=== PATIENT | female | born 1995 | race Two or more races ===

== ENCOUNTER → 2020-06-29 | Emergency (ER) | payer OTHER ==
[~2020-06-29] VITALS: Ht 167.6 cm; Wt 65.8 kg
[~2020-06-29] MED LIST: ONDANSETRON ODT4 MG BC
[2020-06-29 17:12] LABS: APPEARANCE,URINE CLOUDY; BILIRUBIN, URINE NEGATIVE (NEGATIVE); COLOR,URINE PALE YELLOW; GLUCOSE, URINE (UA) NEGATIVE (NEGATIVE); KETONES,URINE NEGATIVE (NEGATIVE); LEUKOCYTE ESTERASE ,URINE 1+ (NEGATIVE); NITRITE,URINE NEGATIVE (NEGATIVE); PH,URINE 7 (4.5-8.0); PROTEIN,URINE 2+ (NEGATIVE); UROBILINOGEN,URINE NORMAL MG/DL (0.0-1.0)
[2020-06-29 17:14] VITALS: BP 146/87
--- NOTE | 2020-06-29 17:16 | NUR ---
ED Nurse Note:urine sent to labs and EKG done
--- NOTE | 2020-06-29 17:56 | Emergency Room Report ---
History of Present Illness General Chief Complaint: General Complaint Source: Patient Present Illness HPI 25-year-old female with hx of Depression and anxiety, presents to the emergency department complaining of dizziness, nausea, vomiting and diarrhea as well as increased crying x2 days. Patient reports that she recently was on antibiotics due to having cellulitis of the leg and during that time she was experiencing medication side effects between antibiotic and her Zoloft and trazodone. Patient psychiatrist told her to abruptly discontinue Zoloft for which she did. Patient states she recently began tapering onto zoloft again and is currently taking 50mg. . Patient reports she smokes marijuana daily. She denies or suspicion of . She denies dizziness or headache. She denies confusion She denies abdominal pain or tenderness. She denies dysuria, materia, urinary frequency or urgency. She denies blood in the vomitus or stool. She denies black tarry stools. She denies fevers or chills. Denies recent travel. Denies contact with persons who have tested positive for or are under investigation/quarantine for COVID-19. She denies SI/HI. She denies PSA's. Pt. denies previous psychiatric hospitalizations. Allergies: Coded Allergies: No Known Allergies (Unverified , 06/29/20) COVID-19 Screening Contact w/high risk pt: No Experienced COVID-19 symptoms?: No COVID-19 Testing performed CLASSROOM MONITOR: No Patient History Past Medical History: see triage record Past Surgical History: none Pertinent Family History: none Last Menstrual Period: na Now: No Reviewed Nursing Documentation: PMH: Agreed; PSxH: Agreed Nursing Documentation-PMH Past Medical History: No History, Except For History Of Psychiatric Problem: Yes - depression, anxiety Review of Systems All Other Systems: negative except mentioned in HPI Physical Exam Vital Signs Date Time Temp Pulse Resp B/P (MAP) Pulse Ox O2 Delivery O2 Flow Rate FiO2 06/29/20 16:31 97.5 83 17 146/87 (106) 99 Room Air Sp02 EP Interpretation: reviewed, normal General Appearance: no apparent distress, alert, GCS 15, non-toxic Head: normocephalic, atraumatic Eyes: bilateral eye normal inspection, bilateral eye PERRL ENT: hearing grossly normal, normal voice Neck: full range of motion Respiratory: lungs clear, normal breath sounds, speaking full sentences Cardiovascular #1: regular rate, rhythm Gastrointestinal: normal bowel sounds, non tender, soft, no peritonitis, non- distended, no guarding Rectal: deferred Genitourinary: normal inspection, no CVA tenderness Musculoskeletal: normal range of motion, gait/station normal, non-tender Neurologic: alert, motor strength/tone normal, oriented x3, sensory intact, responsive, speech normal Psychiatric: judgement/insight normal, memory normal, mood/affect normal, no suicidal/homicidal ideation Skin: no rash, normal color Lymphatic: no adenopathy Medical Decision Making PA Attestation Dr. Dow Is my supervising Physician whom patient management has been discussed with. Diagnostic Impression: Primary Impression: Vomiting and diarrhea ER Course 25-year-old female with hx of Depression and anxiety, presents to the emergency department complaining of dizziness, nausea, vomiting and diarrhea as well as increased crying x2 days. Patient reports that she recently was on antibiotics due to having cellulitis of the leg and during that time she was experiencing medication side effects between antibiotic and her Zoloft and trazodone. Patient psychiatrist told her to abruptly discontinue Zoloft for which she did. Patient states she recently began tapering onto zoloft again and is currently taking 50mg. . Patient reports she smokes marijuana daily. She denies or suspicion of . She denies dizziness or headache. She denies confusion She denies abdominal pain or tenderness. She denies dysuria, materia, urinary frequency or urgency. She denies blood in the vomitus or stool. She denies black tarry stools. She denies fevers or chills. Denies recent travel. Denies contact with persons who have tested positive for or are under investigation/quarantine for COVID-19. She denies SI/HI. She denies PSA's. Pt. denies previous psychiatric hospitalizations. Ddx considered but are not limited to GE, colitis, acute appendicitis, SBO, Cyclical Vomiting secondary to THC, * , COVID-19 just to name a few Vital signs: pt. is afebrile H&PE are most consistent with GE most likely viral in etiology, no evidence to suggest acute abdomen on physical exam. ORDERS: -Urine Hcg: Negative -UA: Moderate bacteria leukocyte esterase is elevated, some red blood cells are present--most consistent with contamination. Discussed these results with the patient and collaborative decision to await reflex culture as patient is not currently having any symptoms such as dysuria, hematuria, urinary frequency or urgency. -Ek NSR ED INTERVENTIONS: -Zofran 4mg After above interventions this patient successfully completed oral fluid challenge without nausea or vomiting. DISCHARGE: At this time pt. is stable for d/c to home. Will provide printed patient care instructions, and any necessary prescriptions. Care plan and follow up instructions have been discussed with the patient prior to discharge. Labs Test 06/29/20 16:55 Urine Color Pale yellow Urine Appearance Cloudy Urine pH 7 (4.5-8.0) Urine Specific [place] 1.005 (1.005-1.035) Urine Protein 2+ (NEGATIVE) Urine Glucose (UA) Negative (NEGATIVE) Urine Ketones Negative (NEGATIVE) Urine Blood 1+ (NEGATIVE) Urine Nitrite Negative (NEGATIVE) Urine Bilirubin Negative (NEGATIVE) Urine Urobilinogen Normal MG/DL (0.0-1.0) Urine Leukocyte Esterase 1+ (NEGATIVE) Urine RBC 2-4 /HPF (0 - 2) Urine WBC 2-4 /HPF (0 - 2) Urine Squamous Epithelial Cells Many /LPF (NONE/OCC) Urine Bacteria Moderate /HPF (NONE) Urine HCG, Qualitative Negative (NEGATIVE) EKG Diagnostic Results Troponin ordered: No EKG Time: 17:17 Rate: normal Rhythm: NSR ST Segments: no acute changes ASA given to the pt in ED: No PA Scribe Text This Interpretation was scribed by BALTA Navarrete. Last Vital Signs Date Time Temp Pulse Resp B/P (MAP) Pulse Ox O2 Delivery O2 Flow Rate FiO2 06/29/20 17:14 83 17 Room Air 06/29/20 17:14 97.5 146/87 99 Disposition: HOME, SELF-CARE Condition: Stable Scripts Ondansetron Odt* (ZOFRAN ODT*) 4 Mg Tab.rapdis 4 MG BC EVERY 6 HOURS PRN for Nausea & Vomiting, #10 TAB 0 Refills Prov: Prisca Navarrete 06/29/20 Referrals: Meri Garza [facility]. [facility] Patient Instructions: Food Choices to Help Relieve Diarrhea, Adult, Nausea and Vomiting, Adult, [id number] Additional Instructions: Take medications as directed. Follow up with a Primary Care Provider in 3-5 days, even if your symptoms have resolved. Return sooner to ED if new symptoms occur, or current symptoms become worse. - Please note that this Emergency Department Report was dictated using [employer] technology software, occasionally this can lead to erroneous entry secondary to interpretation by the dictation equipment. Prisca Navarrete Jun 29, 2020 17:55
--- NOTE | 2020-06-30 19:58 | Cardiology Report ---
APPROVED REPORT EKG Measurement Heart [id number] <Conclusion> Normal sinus rhythm Rightward axis Nonspecific ST abnormality Abnormal ECG
== END | disposition home or self-care (01) ==
LOC: EMR 16:50
DX: R11.2 Nausea with vomiting, unspecified (principal); R19.7 Diarrhea, unspecified; F32.9 Major depressive disorder, single episode, unspecified; F41.9 Anxiety disorder, unspecified; F12.90 Cannabis use, unspecified, uncomplicated; R45.83 Excessive crying of child, adolescent or adult
CPT/HCPCS: 81003; 81025; 87086; 93005; 99283